=== PATIENT | female | born 1950 | race Caucasian/White ===

== ENCOUNTER → 2023-10-07 07:17 | Outpatient (REF) | payer MEDICARE, OTHER, SELFPAY | LOC: HWWDC 07:17 | PROVIDERS: ATTENDING PHYSICIAN Obstetrics & Gynecology Gynecology; FAMILY PHYSICIAN Internal Medicine | DX: Z12.31 Encounter for screening mammogram for malignant neoplasm of breast (principal) | CPT/HCPCS: 77063; 77067 ==

== ENCOUNTER → 2023-10-28 14:08 | Outpatient (REF) | payer MEDICARE, OTHER, SELFPAY | LOC: HWRAD 14:08 | PROVIDERS: ATTENDING PHYSICIAN Internal Medicine | DX: Z78.0 Asymptomatic menopausal state (principal) | CPT/HCPCS: 77080 ==

== ENCOUNTER 2023-11-03 13:56 | Outpatient (RCR) | payer MEDICARE, OTHER, SELFPAY | END 2023-11-03 23:59 | disposition home or self-care (01) | LOC: ROT 13:56 | PROVIDERS: ATTENDING PHYSICIAN Internal Medicine | DX: M79.642 Pain in left hand (principal); M79.641 Pain in right hand; Z73.6 Limitation of activities due to disability | CPT/HCPCS: 97018; 97110; 97166; 97535 ==

== ENCOUNTER → 2023-11-24 10:23 | Outpatient (REF) | payer MEDICARE, OTHER, SELFPAY | LOC: RCS 10:23 | PROVIDERS: ATTENDING PHYSICIAN Internal Medicine Cardiovascular Disease; FAMILY PHYSICIAN Internal Medicine | DX: R07.9 Chest pain, unspecified (principal) | CPT/HCPCS: 93017 ==

== ENCOUNTER → 2025-03-01 10:25 | Outpatient (REF) | payer MEDICARE, OTHER, SELFPAY | LOC: HWWDC 10:25 | PROVIDERS: ATTENDING PHYSICIAN Internal Medicine | DX: Z12.31 Encounter for screening mammogram for malignant neoplasm of breast (principal) | CPT/HCPCS: 77063; 77067 ==